=== PATIENT | female | born 1955 | race Caucasian/White ===

== ENCOUNTER → 2019-02-14 17:49 | Outpatient (CLI) | payer OTHER, SELFPAY ==
--- NOTE | 2019-02-14 | DI.MG.S_ITS ---
BILATERAL DIGITAL SCREENING MAMMOGRAM 3D/2D WITH CAD: 02/14/2019 CLINICAL: Routine screening. Family history of breast cancer. Comparison is made to exams dated: 10/21/2017 mammogram, 10/20/2016 mammogram, and 03/11/2015 mammogram - [facility]. There are scattered fibroglandular elements in both breasts. Current study was also evaluated with a Computer Aided Detection (CAD) system. No significant masses, calcifications, or other findings are seen in either breast. There has been no significant interval change. IMPRESSION: NEGATIVE There is no mammographic evidence of malignancy. A 1 year screening mammogram is recommended. This exam was interpreted at Station ID: [id number]. NOTE: For mammograms, a report in lay terms will be sent to the patient. Approximately 15% of breast malignancies will not be visualized mammographically. In the management of a palpable breast mass, a negative mammogram must not discourage biopsy of a clinically suspicious lesion. Electronically Signed By: Hermelindo rhodes/bharath:02/15/2019 08:24:40 letter sent: Normal Exam ACR BI-RADS Category 1: Negative [id number]
== END ==
PROVIDERS: Family Provider Physician Assistant; PCP Physician Assistant; Visit Provider Student in an Organized Health Care Education/Training Program
DX: Z12.31 Encounter for screening mammogram for malignant neoplasm of breast (principal); Z80.3 Family history of malignant neoplasm of breast
CPT/HCPCS: 77063; 77067

== ENCOUNTER → 2020-02-28 13:05 | Outpatient (CLI) | payer MEDICARE, SELFPAY ==
--- NOTE | 2020-02-28 | DI.MG.S_ITS ---
BILATERAL DIGITAL SCREENING MAMMOGRAM 3D/2D WITH CAD: 02/28/2020 CLINICAL: Routine screening. Family history of breast cancer. Comparison is made to exams dated: 02/14/2019 mammogram, 10/21/2017 mammogram, and 10/20/2016 mammogram - [facility]. There are scattered fibroglandular elements in both breasts. Current study was also evaluated with a Computer Aided Detection (CAD) system. No significant masses, calcifications, or other findings are seen in either breast. There has been no significant interval change. IMPRESSION: NEGATIVE There is no mammographic evidence of malignancy. A 1 year screening mammogram is recommended. This exam was interpreted at Station ID: [id number]. NOTE: For mammograms, a report in lay terms will be sent to the patient. Approximately 15% of breast malignancies will not be visualized mammographically. In the management of a palpable breast mass, a negative mammogram must not discourage biopsy of a clinically suspicious lesion. Electronically Signed By: John Lance M.D., jr/bharath:02/28/2020 13:58:08 letter sent: Normal Exam ACR BI-RADS Category 1: Negative [id number]
== END ==
PROVIDERS: Family Provider Physician Assistant; PCP Student in an Organized Health Care Education/Training Program; Referring Provider Student in an Organized Health Care Education/Training Program; Visit Provider Student in an Organized Health Care Education/Training Program
DX: Z12.31 Encounter for screening mammogram for malignant neoplasm of breast (principal); Z80.3 Family history of malignant neoplasm of breast
CPT/HCPCS: 77063; 77067

== ENCOUNTER → 2020-03-20 09:23 | Outpatient (CLI) | payer MEDICARE, SELFPAY ==
[2020-03-23 09:27] LABS: COVID19 Sendout Not Detected (Not Detect)
== END ==
PROVIDERS: Visit Provider Physician Assistant
DX: Z11.59 Encounter for screening for other viral diseases (principal)
CPT/HCPCS: 87635

== ENCOUNTER 2020-03-23 08:03 | Day surgery (SDC) | payer MEDICARE, SELFPAY ==
[2020-03-23] VITALS (7 sets, daily range): BP systolic 100–134; BP diastolic 59–71; PULSE 85–104; RESP 15–21; TEMP 36.1–36.7; O2SAT 94–99; BMI 26.6
[2020-03-23] MEDS: LACTATED RINGERS 1,000 ML 200 ML IV (08:22)
--- NOTE | 2020-03-23 09:18 | PM.HP.1 ---
History of Present Illness History of Present Illness Date Patient Seen: 03/23/20 Time Patient Seen: 09:18 Chief complaint: SDC Narrative: The patient presents for colorectal sreening. If had 3 prior colonoscopies the most recent being 5 years ago that demonstrated several adenomatous polyps which were resected. No personal or family history of colon cancer. On further history denies any recent gastrointestinal symptoms. No nausea, vomiting, abdominal pain, loss of appetite, unexplained weight loss, change in bowel habits, diarrhea, constipation, melena, hematochezia, or bright red blood per rectum. Patient History Medical History Acute appendicitis (Inactive) HTN (hypertension) (Acute) Surgical History History of appendectomy (Acute) Family & Social History Social History: household members spouse Tobacco & Substance use: Smoking Status Never smoker alcohol intake frequency holiday/special occasion Substance Use Type does not use Meds Home Medications and Allergies Home Medications Medication Instructions Recorded Confirmed Type alprazolam [Xanax XR] 2.5 mg PO QDAY PRN #0 07/08/17 03/23/20 History amlodipine [Norvasc] 2.5 mg PO DAILY #0 07/08/17 03/23/20 History atorvastatin [Lipitor] 20 mg PO DAILY #0 07/08/17 03/23/20 History atorvastatin [Lipitor] 20 mg PO DAILY #0 07/08/17 03/23/20 History losartan 25 mg PO DAILY #0 07/08/17 03/23/20 History losartan BID #0 07/08/17 History nortriptyline 75 mg PO HS #0 07/08/17 03/23/20 History oxycodone-acetaminophen 0 tab PO Q6HP PRN #30 07/10/17 Rx oxycodone-acetaminophen [Percocet] 1 tab PO Q6HP PRN #20 tab 07/10/17 Rx metoprolol tartrate 25 mg PO DAILY 03/23/20 03/23/20 History Allergies Allergy/AdvReac Type Severity Reaction Status Date / Time amoxicillin [From AUGMENTIN] Allergy Unknown Verified 03/23/20 08:16 clavulanic acid Allergy Unknown Verified 03/23/20 08:16 [From AUGMENTIN] Tetracyclines [TETRACYCLINES] Allergy Unknown Verified 03/23/20 08:16 Review of Systems Review of Systems Narrative: A 10 point review of systems is negative except as noted in the HPI Exam Vital Signs (past 8 hours): - 03/23/20 08:22 Temperature 96.9 F L Pulse Rate 104 H Respiratory Rate 20 Blood Pressure 113/71 Pulse Oximetry 99 Oxygen Delivery Method Room Air Narrative Exam Narrative: General-no acute distress, well nourished adult woman HEENT-moist mucous membranes, no scleral icterus Neck-supple, no lymphadenopathy Chest- non labored respirations, clear to auscultation bilaterally Cardiac-regular rate no peripheral edema Abdomen-soft, nontender, non distended Extremities-warm, well perfused Neurological-alert and oriented, no focal deficits Assessment & Plan Assessment and plan (1) Screening for colon cancer: Status: Acute Assessment & Plan narrative: The patient requires colorectal screening and colonoscopy is recommended. Technical details were discussed. Risks, benefits, alternatives explained. Risks including but not limited to myocardial infarction, aspiration, bleeding, pain, missed lesion, incomplete examination, need for further radiographic studies, colonic perforation, and need for major abdominal surgery were discussed. All questions were answered to their satisfaction, and they are in agreement with this plan. COVID-19 COVID-19 status: Negative
[2020-03-23] MEDS: MIDAZOLAM 5 MG/5 ML VIAL IV (09:26)
[2020-03-23] MEDS: fentaNYL 250 MCG/5 ML INJ IV (09:26)
--- NOTE | 2020-03-23 09:47 | PM.OP.ENDO ---
Operative Date/Time/Diagnoses Date of procedure: 03/23/20 Time of procedure: 09:47 Pre-op diagnosis: screening colonoscopy Post-op diagnosis: same Procedure & Clinicians Study performed: Colonoscopy Same procedure as scheduled: Yes Indications: 64-year-old woman last colonoscopy 5 years ago had adenomatous polyps resected here for routine screening Surgeon: Alverto Jorge Procedure Notes SCOAP/Timeout: Performed Procedure in detail: Patient placed in left lateral recumbent position. Time out was performed. Procedural sedation was administered with Versed and Fentanyl. Examination began with a thorough inspection of the perianal area there was no evidence of fissures, fistulae, external hemorrhoids or cutaneous malignancy. The colonoscopy scope was then placed into the rectum the the lumen was insufflated with air. The scope was carefully advanced forward. Ultimately the cecum was intubated and confirmed by identification of the ileocecal valve the appendiceal orifice and the confluence of the taenia. The scope was then slowly withdrawn examining colon thoroughly in all directions. In the rectum the rectal columns were identified and retroflexion of the scope was performed for inspection of the distal rectum and anal canal. The colonoscopy was notable for the followin. Quality of the preparation-good 2. Sigmoid diverticulosis 3. Diffuse circumferential mild inflammation of the cecum and ascending colon 4. Grade 1 internal hemorrhoids Scope withdrawal time: 7 Sedation minutes: 20 Findings: diverticulosis Specimen(s): none sent Complications: none Impression: Diverticulosis Post-procedure Recommendations: Colonscopy in 10 years Disposition: same day surgery
--- NOTE | 2020-03-23 09:58 | SUR.PHASEI ---
0950 Clammy upon arrival per RN and patient. She denies any pain/nausea. HOB elevated briefly for water and then lowered r/t light headedness. Washcloth to head upon arrival. Resp unlabored, oriented
--- NOTE | 2020-03-23 10:06 | SUR.PHASEI ---
HOB elevated, denies light-headedness, tolerating PO well.
--- NOTE | 2020-03-23 10:36 | SUR.PHASEII ---
Pt dcd in stable condition with no c/o and all dc instructions verbalized understanding. Up and ambulating on her own, gait steady.
== END 2020-03-23 10:35 | disposition home or self-care (01) ==
PROVIDERS: Referring Provider Surgery; Visit Provider Surgery
PROC: 0DJD8ZZ Inspection of Lower Intestinal Tract, Via Natural or Artificial Opening Endoscopic (ICD-10-PCS; CPT 45378; principal; 2020-03-23 09:15)
DX: Z12.11 Encounter for screening for malignant neoplasm of colon (principal); Z86.010 Personal history of colon polyps; I10 Essential (primary) hypertension; K57.30 Diverticulosis of large intestine without perforation or abscess without bleeding; K64.0 First degree hemorrhoids
CPT/HCPCS: G0105; 99152; J2250; J3010

== ENCOUNTER 2022-02-02 15:58 | Emergency (ER) | payer MEDICARE, SELFPAY ==
[2022-02-02] VITALS (17 sets, daily range): BP systolic 106–130; BP diastolic 53–82; PULSE 71–85; RESP 13–24; TEMP 37; O2SAT 96–99; BMI 25.9
--- NOTE | 2022-02-02 16:12 | DI.RAD.S_ITS ---
PROCEDURE: XR CHEST 1V INDICATIONS: chest pain TECHNIQUE: One view of the chest was acquired. COMPARISON: None. FINDINGS: Surgical changes and devices: None. Lungs and pleura: Lungs are clear. No pleural effusions or pneumothorax. Mediastinum: Mediastinal contours appear normal. Heart size is normal. Bones and chest wall: No suspicious bony lesions. Overlying soft tissues appear unremarkable. IMPRESSION: No acute pulmonary process. Dictated by: Marce Venegas M.D. on 02/02/2022 at 16:51 Approved by: Marce Venegas M.D. on 02/02/2022 at 16:51
[2022-02-02 16:55] LABS: Add Manual Diff / Slide Review NO; Basophils Absolute Auto 0 /uL (0-100); Basophils Percent Auto 0.4 % (0-2); Eosinophils Absolute Auto 100 /uL (0-450); Eosinophils Percent Auto 1.1 % (2-4); Hematocrit 35.8 % (36-46); Hemoglobin 12.1 g/dL (12.0-16.0); Lymphocytes Absolute Auto 1600 /uL (1100-4500); Lymphocytes Percent Auto 22.8 % (25-40); Mean Corpuscular HGB Conc 33.9 % (30-36); Mean Corpuscular Hemoglobin 31.1 PG (26-34); Mean Corpuscular Volume 91.7 fL (80-100); Monocytes Absolute Auto 600 /uL (0-900); Neutrophils Absolute Auto 4600 /uL (1500-7000); Neutrophils Percent Auto 66.7 % (50-75); Platelet Count 229 X10^3/uL (150-400); Red Cell Distribution Width 14.4 % (11.6-14.8); White Blood Cell Count 6.8 X10^3/uL (4.5-11.0)
[2022-02-02 16:59] LABS: Alanine Aminotransferase 25 IU/L (<35); Albumin 4.6 g/dL (3.5-5.0); Albumin Globulin Ratio 1.3 (1.0-2.8); Alkaline Phosphatase 83 U/L (38-126); Aspartate Aminotransferase 36 IU/L (14-36); BUN Creatinine Ratio 17.4 (6-22); Bilirubin Total 0.4 mg/dL (0.2-1.3); Blood Urea Nitrogen 27 mg/dL (7-17); Calcium 9.6 mg/dL (8.4-10.2); Carbon Dioxide 25 mmol/L (22-32); Chloride 97 mmol/L (98-107); Creatine Kinase 45 U/L (30-135); Estimated Glomerular Filt Rate 36 mL/min (>60); Globulin 3.5 g/dL (1.7-4.1); Glucose 97 mg/dL (80-110); HEMOLYSIS < 15 (0-50); Lipase 250 U/L (23-300); Magnesium 2.2 mg/dL (1.6-2.3); Potassium 3.9 mmol/L (3.4-5.1); Sodium 134 mmol/L (137-145); Total Protein 8.1 g/dL (6.3-8.2)
[2022-02-02 17:10] LABS: Troponin I < 0.012 ng/mL (0.01-0.034)
[2022-02-02 17:19] LABS: COVID19 -Nasal RAPID Negative (Negative)
--- NOTE | 2022-02-02 19:28 | ED.SYNCOPE ---
HPI - Syncope General Chief Complaint: Syncope Stated Complaint: sent for coronary workup Time Seen by Provider: 02/02/22 18:15 Source: patient Mode of arrival: Ambulatory Limitations: no limitations History of Present Illness HPI narrative: 66-year-old female nonsmoker with history of hypertension and hyperlipidemia presents with her for evaluation of a syncopal episode suffered in the past few days. She is been feeling a bit under the weather for the past 5 days and reports a low-grade fever, fatigue and generalized weakness. She denies any headache or blurred vision nor trouble swallowing or speech. She denies any chest pain or shortness of breath. She states that she has no abdominal pain or constipation but frequently has loose stools. She had been on the couch feeling a bit under the weather and upon standing felt lightheaded and then had a syncopal episode. She did bump her head as a consequence of the fall but denies any neck or back pain nor any extremity injury. She states that she had spent some time on [place] and was having some difficulty ambulating and felt a bit ?off? leading into this. She denies any recent travel, change in medications or diet nor history of blood clot or cancer. Related Data Home Medications Medication Instructions Recorded Confirmed losartan 50 mg tablet 50 mg PO QDAY ##0 11/20/11 alprazolam 3 mg tablet,extended 2.5 mg PO QDAY PRN Anxiety ##0 07/08/17 03/23/20 release 24 hr (Xanax XR) amlodipine 2.5 mg tablet (Norvasc) 2.5 mg PO DAILY ##0 07/08/17 03/23/20 atorvastatin 20 mg tablet (Lipitor) 20 mg PO DAILY ##0 07/08/17 03/23/20 atorvastatin 20 mg tablet (Lipitor) 20 mg PO DAILY ##0 07/08/17 03/23/20 losartan 25 mg tablet 25 mg PO DAILY ##0 07/08/17 03/23/20 losartan 25 mg tablet BID ##0 07/08/17 nortriptyline 75 mg capsule 75 mg PO HS ##0 07/08/17 03/23/20 metoprolol tartrate 25 mg tablet 25 mg PO DAILY 03/23/20 03/23/20 Previous Rx's Medication Instructions Recorded oxycodone-acetaminophen 5 mg-325 0 tab PO Q6HP PRN ##30 18 mg tablet oxycodone-acetaminophen 5 mg-325 1 tab PO Q6HP PRN #20 tabs 18 mg tablet (Percocet) Allergies Allergy/AdvReac Type Severity Reaction Status Date / Time amoxicillin [From AUGMENTIN] Allergy Unknown Verified 02/02/22 16:12 clavulanic acid Allergy Unknown Verified 02/02/22 16:12 [From AUGMENTIN] Tetracyclines [TETRACYCLINES] Allergy Unknown Verified 02/02/22 16:12 Review of Systems Review of Systems Narrative: GENERAL: See HPI HEENT: See HPI RESPIRATORY: See HPI CARDIOVASCULAR: Denies chest pain, palpitations, orthopnea, edema, GASTROINTESTINAL: See HPI : Denies dysuria, frequency, incontinence, hematuria, urinary retention. MUSCULOSKELETAL: denies weakness, joint pain, or bony pain SKIN: Denies rash, skin lesions, or other NEUROLOGIC: Denies weakness, headache, numbness, change in speech, confusion, seizures, incoordination. PSYCHIATRIC: No concerning psychosocial issues. 12 point review of systems is negative except for those stated above Patient History Medical History (Updated 02/02/22 @ 22:05 by Rufino Dumont DO) Acute appendicitis HTN (hypertension) Surgical History History of appendectomy Social History household members: spouse Smoking Status: Never smoker Smoking Status: Never smoker alcohol intake frequency: holidays/special occasions only Substance Use Type: does not use Exam Narrative Exam Narrative: GENERAL: [66] year old patient appears stated age. Well-developed patient, in mild distress. GCS 15 HEAD: Atraumatic. Normocephalic. EYES: Pupils equal round and reactive. Extraocular motions intact. No scleral icterus. No injection or drainage. ENT: Dry mucous membranes Nose without bleeding, purulent drainage. Throat without erythema, tonsillar hypertrophy or exudate. Airway patent. NECK: Trachea midline. Non tender CARDIOVASCULAR: Regular rate and rhythm without murmurs, gallops, or rubs. RESPIRATORY: Clear to auscultation. Breath sounds equal bilaterally. No wheezes, rales, or rhonchi. GASTROINTESTINAL: Abdomen soft, non-tender, nondistended. EXTREMITIES: No edema or joint tenderness. BACK: Nontender without deformity or crepitance. No flank tenderness. NEURO: AOx3. SKIN: No rash or erythema of visible areas Initial Vital Signs Initial Vital Signs: Vital Signs Temperature 98.6 F 02/02/22 16:07 Pulse Rate 84 02/02/22 16:07 Respiratory Rate 18 02/02/22 16:07 Blood Pressure 123/82 02/02/22 16:07 Pulse Oximetry 97 02/02/22 16:07 Oxygen Delivery Method 02/02/22 16:07 Course Orders Ordered: ED Orders 02/02/22 19:37 CT head/brain wo con Stat 02/02/22 21:00 BMP [Basic Metabolic Panel] Stat Trop I [Troponin I] Stat Discontinued Medications Lactated Ringer's (Lactated Ringers) 1,000 mls @ 1,000 mls/hr IV BOLUS ONE Stop: 02/02/22 20:28 Last Infusion: 02/02/22 20:53 Dose: 0 mls/hr Documented By: Admin: 02/02/22 19:36 Dose: 1,000 mls/hr Documented By: KIRTI Lactated Ringer's (Lactated Ringers) 1,000 mls @ 1,000 mls/hr IV BOLUS ONE Stop: 02/02/22 21:59 Last Infusion: 02/02/22 22:16 Dose: 0 mls/hr Documented By: Admin: 02/02/22 21:01 Dose: 1,000 mls/hr Documented By: SHAWNA Vital Signs Vital signs: Vital Signs - 8 hr 02/02/22 20:30 02/02/22 21:00 02/02/22 21:05 Pulse Rate 74 73 76 Respiratory Rate 22 Blood Pressure Pulse Oximetry 96 98 99 02/02/22 21:05 02/02/22 21:30 02/02/22 21:30 Pulse Rate 71 Respiratory Rate 16 Blood Pressure 110/56 L 108/53 L Pulse Oximetry 98 02/02/22 22:00 02/02/22 22:00 Pulse Rate 73 Respiratory Rate 18 Blood Pressure 112/56 L Pulse Oximetry 97 MDM - Syncope Lab Data Result diagrams: 02/02/22 16:20 02/02/22 21:00 Labs: Lab Results 02/02/22 02/02/22 02/02/22 Range/Units 16:10 16:20 16:20 WBC 6.8 (4.5-11.0) X10^3/uL RBC 3.90 L (4.0-5.2) X10^6/uL Hgb 12.1 (12.0-16.0) g/dL Hct 35.8 L (36-46) % MCV 91.7 (80-100) fL MCH 31.1 (26-34) PG MCHC 33.9 (30-36) % RDW 14.4 (11.6-14.8) % Plt Count 229 (150-400) X10^3/uL Neut % (Auto) 66.7 (50-75) % Lymph % (Auto) 22.8 L (25-40) % [place] % (Auto) 9.0 (3-14) % Eos % (Auto) 1.1 L (2-4) % Baso % (Auto) 0.4 (0-2) % Neut # (Auto) 4600 (9476-2877) /uL Lymph # (Auto) 1600 (8624-6337) /uL [place] # (Auto) 600 (0-900) /uL Eos # (Auto) 100 (0-450) /uL Baso # (Auto) 0 (0-100) /uL Sodium 134 L (137-145) mmol/L Potassium 3.9 (3.4-5.1) mmol/L Chloride 97 L (98-107) mmol/L Carbon Dioxide 25 (22-32) mmol/L BUN 27 H (7-17) mg/dL Creatinine 1.55 H (0.52-1.04) mg/dL Estimated GFR 36 L (>60) mL/min BUN/Creatinine Ratio 17.4 (6-22) Glucose 97 (80-110) mg/dL Calcium 9.6 (8.4-10.2) mg/dL Magnesium 2.2 (1.6-2.3) mg/dL Total Bilirubin 0.4 (0.2-1.3) mg/dL AST 36 (14-36) IU/L ALT 25 (<35) IU/L Alkaline Phosphatase 83 (38-126) U/L Total Creatine Kinase 45 (30-135) U/L CK-MB (CK-2) TNP CK-MB (CK-2) Rel Index TNP Troponin I < 0.012 (0.01-0.034) ng/mL Total Protein 8.1 (6.3-8.2) g/dL Albumin 4.6 (3.5-5.0) g/dL Globulin 3.5 (1.7-4.1) g/dL Albumin/Globulin Ratio 1.3 (1.0-2.8) Lipase 250 (23-300) U/L Urine RBC (0-5/HPF) Urine WBC (0-5/HPF) Ur Squamous Epith Cells (0-5/HPF) Amorphous Sediment Urine Bacteria (None) Ur Culture Indicated? SARS-CoV-2 (PCR) Negative (Negative) 02/02/22 02/02/22 02/02/22 Range/Units 19:14 21:00 21:00 WBC (4.5-11.0) X10^3/uL RBC (4.0-5.2) X10^6/uL Hgb (12.0-16.0) g/dL Hct (36-46) % MCV (80-100) fL MCH (26-34) PG MCHC (30-36) % RDW (11.6-14.8) % Plt Count (150-400) X10^3/uL Neut % (Auto) (50-75) % Lymph % (Auto) (25-40) % [place] % (Auto) (3-14) % Eos % (Auto) (2-4) % Baso % (Auto) (0-2) % Neut # (Auto) (9982-1406) /uL Lymph # (Auto) (3432-8318) /uL [place] # (Auto) (0-900) /uL Eos # (Auto) (0-450) /uL Baso # (Auto) (0-100) /uL Sodium 131 L (137-145) mmol/L Potassium 3.9 (3.4-5.1) mmol/L Chloride 97 L (98-107) mmol/L Carbon Dioxide 24 (22-32) mmol/L BUN 26 H (7-17) mg/dL Creatinine 1.47 H (0.52-1.04) mg/dL Estimated GFR 39 L (>60) mL/min BUN/Creatinine Ratio 17.7 (6-22) Glucose 95 (80-110) mg/dL Calcium 8.9 (8.4-10.2) mg/dL Magnesium (1.6-2.3) mg/dL Total Bilirubin (0.2-1.3) mg/dL AST (14-36) IU/L ALT (<35) IU/L Alkaline Phosphatase (38-126) U/L Total Creatine Kinase (30-135) U/L CK-MB (CK-2) CK-MB (CK-2) Rel Index Troponin I < 0.012 (0.01-0.034) ng/mL Total Protein (6.3-8.2) g/dL Albumin (3.5-5.0) g/dL Globulin (1.7-4.1) g/dL Albumin/Globulin Ratio (1.0-2.8) Lipase (23-300) U/L Urine RBC 1-5/hpf (0-5/HPF) Urine WBC 1-5/hpf (0-5/HPF) Ur Squamous Epith Cells 1-5 /hpf (0-5/HPF) Amorphous Sediment 1+ Urine Bacteria Few (2-10) H (None) Ur Culture Indicated? Specimen cultured SARS-CoV-2 (PCR) (Negative) Urine Dip Bedside Urine Glucose Negative Bedside Urine Bilirubin - Negative Bedside Urine Ketone - Negative Urine Specific [place] 1.020 Bedside Urine Occult Blood ++ Bedside Urine pH 5 Bedside Urine Protein + 30 Bedside Urine Urobilinogen - Negative Bedside Urine Nitrite - Negative Bedside Urine Leukocytes - Negative Esterase Imaging Data Chest x-ray: Radiologist's Impression: Close Chest X-Ray (Signed) Marce Venegas - 02/02/22 Telemetry Strips 03/23/20 Mammogram Screening (Signed) John Lance - 02/28/20 Mammogram Screening (Signed) Hermelindo Miranda - 02/14/19 Launch?[address] [address] XRay Report Signed Patient: Ara Garduno MR#: [id number] : 1955 Acct:[id number] Age/Sex: 66 / F Date of Service: 02/02/22 Loc: ED Accession Number: [id number] ?? Procedure: XR chest 1V Ordering Provider: Cyndee Munoz D.O. PROCEDURE:? XR CHEST 1V ? INDICATIONS:? chest pain ? TECHNIQUE:? One view of the chest was acquired.? ? COMPARISON:? None. ? FINDINGS:? ? Surgical changes and devices:? None.? ? Lungs and pleura:? Lungs are clear.? No pleural effusions or pneumothorax.? ? Mediastinum:? Mediastinal contours appear normal.? Heart size is normal.? ? Bones and chest wall:? No suspicious bony lesions.? Overlying soft tissues appear unremarkable.? ? IMPRESSION:? No acute pulmonary process. ? ? Dictated by: Marce Venegas M.D. on 02/02/2022 at 16:51 ? ? Approved by: Marce Venegas M.D. on 02/02/2022 at 16:51 ? CT scan - head: Radiologist's Impression: Close Head CT (Signed) Emigdio Antoine - 02/02/22 Chest X-Ray (Signed) Marce Venegas - 02/02/22 Telemetry Strips 03/23/20 Mammogram Screening (Signed) John Lance - 02/28/20 Mammogram Screening (Signed) Hermelindo Miranda - 02/14/19 Launch?[place] [address] CT Scan Report Signed Patient: Ara Garduno MR#: [id number] : 1955 Acct:[id number] Age/Sex: 66 / F Date of Service: 02/02/22 Loc: Accession Number: [id number] ?? Procedure: CT head/brain wo con Ordering Provider: Rufino Dumont D.O. PROCEDURE:? CT HEAD/BRAIN WO CON ? INDICATIONS:? dizzy, ambulation troubles last week, fall, head injury ? TECHNIQUE:? Noncontrast 4.5 mm thick angled axial sections acquired from the foramen magnum to the vertex, with coronal and sagittal reformats.? For radiation dose reduction, the following was used:? automated exposure control, adjustment of mA and/or kV according to patient size.? ? COMPARISON:? None. ? FINDINGS:? Image quality:? Excellent.? ? CSF spaces:? Basal cisterns are patent.? No extra-axial fluid collections.? The ventricles are symmetric in size and shape.? ? Brain:? No intracranial bleeds or masses.? There is cerebral volume loss for age, with resultant ventricular and sulcal prominence.? There are periventricular and deep white matter chronic small vessel ischemic changes.? There is intracranial internal carotid artery atherosclerosis.? ? Skull and face:? Calvarium and visualized facial bones appear intact, without suspicious lesions.? ? Sinuses:? Visualized sinuses and mastoids are clear.? ? IMPRESSION:? 1.? Volume loss and small vessel ischemic disease. 2. No acute intracranial abnormality. ? ? Dictated by: Emigdio Antoine M.D. on 02/02/2022 at 19:55 ? ? Approved by: Emigdio Antoine M.D. on 02/02/2022 at 19:55 ? ECG Data Interpretation: [1621] EKG is normal sinus rhythm rate [ 81] and free of any signs of ischemia or ectopy. No ST segmental elevation or depression. No T wave inversions. CT 234 (1st degree block) MDM Narrative Medical decision making narrative: 66-year-old female with reassuring history and physical exam has syncopal episode with change in position. She suffered no significant injury, exam suggests possible mild dehydration, she feels significant improvement after fluids, kidney function has improved. She is tolerating orals, able to ambulate without difficulty. Return precautions given and questions answered to her apparent satisfaction Discharge Plan Departure Patient Disposition: Home Clinical Impression: Syncope due to orthostatic hypotension, Acute dehydration Instructions: DI for Syncope in Adults (Fainting) Activity Restrictions/Additional Instructions: *You have been diagnosed with [fainting episode, likely due to dehydration ] *What to do: *Please continue to take your regular medications as directed. [ ] New medication prescriptions sent to your pharmacy: [ ] [ ] New medication written as a paper prescription [x ] No new medications given *Please follow up with your primary care provider in 2-3 days, call for an appointment. Let them know you were seen in the Emergency Department and that we ask that you be seen in follow up. We will electronically transmit a record of today's note if your PCP is in our system *If you do not have a primary care provider please contact the [facility] Resource line at [phone]. They will ask some questions about your medical history and help get you set up with a doctor in the community. *Return to Emergency Department if you should have any new, worsening or concerning symptoms, such as [fever greater than 101 F, shaking chills, worsening pain, persistent vomiting or other bothersome symptoms] Prescriptions: No Action losartan 50 MG tablet 50 mg PO QDAY Qty: 0 atorvastatin [Lipitor] 20 mg tablet 20 mg PO DAILY Qty: 0 amlodipine [Norvasc] 2.5 mg tablet 2.5 mg PO DAILY Qty: 0 losartan 25 mg tablet 25 mg PO DAILY Qty: 0 nortriptyline 75 MG capsule 75 mg PO HS Qty: 0 losartan 25 MG tablet BID Qty: 0 atorvastatin [Lipitor] 20 MG tablet 20 mg PO DAILY Qty: 0 alprazolam [Xanax XR] 3 MG tablet extended release 24 hr 2.5 mg PO QDAY PRN (Reason: Anxiety) Qty: 0 oxycodone-acetaminophen 5 MG/325 MG tablet 0 tab PO Q6HP PRNQty: 30 0RF oxycodone-acetaminophen [Percocet] 5 MG/325 MG tablet 1 tab PO Q6HP PRNQty: 20 0RF metoprolol tartrate 25 mg Tablet 25 mg PO DAILY Referrals: Meera Cuellar PA-C [Primary Care Provider] - Visit Report Forms: Patient Portal/API
[2022-02-02] MEDS: LACTATED RINGERS 1,000 ML 1000 ML IV ×2 (19:36→21:01)
--- NOTE | 2022-02-02 19:37 | DI.CT.S_ITS ---
PROCEDURE: CT HEAD/BRAIN WO CON INDICATIONS: dizzy, ambulation troubles last week, fall, head injury TECHNIQUE: Noncontrast 4.5 mm thick angled axial sections acquired from the foramen magnum to the vertex, with coronal and sagittal reformats. For radiation dose reduction, the following was used: automated exposure control, adjustment of mA and/or kV according to patient size. COMPARISON: None. FINDINGS: Image quality: Excellent. CSF spaces: Basal cisterns are patent. No extra-axial fluid collections. The ventricles are symmetric in size and shape. Brain: No intracranial bleeds or masses. There is cerebral volume loss for age, with resultant ventricular and sulcal prominence. There are periventricular and deep white matter chronic small vessel ischemic changes. There is intracranial internal carotid artery atherosclerosis. Skull and face: Calvarium and visualized facial bones appear intact, without suspicious lesions. Sinuses: Visualized sinuses and mastoids are clear. IMPRESSION: 1. Volume loss and small vessel ischemic disease. 2. No acute intracranial abnormality. Dictated by: Emigdio Antoine M.D. on 02/02/2022 at 19:55 Approved by: Emigdio Antoine M.D. on 02/02/2022 at 19:55
--- NOTE | 2022-02-02 20:04 | PC.NURSE ---
Pt reports being lethargic for the past 6 days with a decrease in appetite and diarrhea. She reports a syncopal event last night at 2230 with injury to her head and right elbow. Reports she has been feeling off-balance. Pt denies blood thinners, chest pain or SOB.
[2022-02-02 21:13] LABS: Amorphous Sediment Urine 1+; Bacteria Urine Few (2-10); Culture Indicated Urine Specimen Cultured; RBC Urine 1-5/HPF (0-5/HPF); Squamous Epithelial Cell Urine 1-5 /HPF (0-5/HPF); WBC Urine 1-5/HPF (0-5/HPF)
[2022-02-02 21:29] LABS: BUN Creatinine Ratio 17.7 (6-22); Blood Urea Nitrogen 26 mg/dL (7-17); Calcium 8.9 mg/dL (8.4-10.2); Carbon Dioxide 24 mmol/L (22-32); Chloride 97 mmol/L (98-107); Estimated Glomerular Filt Rate 39 mL/min (>60); Glucose 95 mg/dL (80-110); HEMOLYSIS < 15 (0-50); Potassium 3.9 mmol/L (3.4-5.1); Sodium 131 mmol/L (137-145)
[2022-02-02 21:41] LABS: Troponin I < 0.012 ng/mL (0.01-0.034)
== END 2022-02-02 22:17 | disposition home or self-care (01) ==
PROVIDERS: Emergency Medicine; Emergency Provider Emergency Medicine; PCP Physician Assistant; Referring Provider Physician Assistant
DX: I95.1 Orthostatic hypotension (principal); E86.0 Dehydration; S09.90XA Unspecified injury of head, initial encounter; W19.XXXA Unspecified fall, initial encounter; R07.9 Chest pain, unspecified; Z20.822 Contact with and (suspected) exposure to COVID-19
CPT/HCPCS: 36415; 70450; 71045; 80048; 80053; 81003; 81015; 82550; 83690; 83735; 84484; 85025; 87086; 87635; 93005; 96360; 96361; 99284; C9803

== ENCOUNTER → 2023-01-06 14:29 | Outpatient (CLI) | payer MEDICARE, SELFPAY ==
--- NOTE | 2023-01-06 | DI.MG.S_ITS ---
BILATERAL DIGITAL SCREENING MAMMOGRAM 3D/2D WITH CAD: 01/06/2023 CLINICAL: Routine screening. Family history of breast cancer. No prior exams were available for comparison. There are scattered areas of fibroglandular density in both breasts (category b / 25%-50% glandular tissue). Current study was also evaluated with a Computer Aided Detection (CAD) system. No significant masses, calcifications, or other findings are seen in either breast. IMPRESSION: NEGATIVE There is no mammographic evidence of malignancy. A 1 year screening mammogram is recommended. Based on the Tyrer Cuzick model (a risk assessment model) the patient's lifetime risk is 4.5% and her 10 year risk is 2.5%. According to the ACR, ACS, and NCCN guidelines, an annual breast MRI exam along with mammogram is recommended if the patient's lifetime risk is 20% or greater. This exam was interpreted at Station ID: [id number]. NOTE: For mammograms, a report in lay terms will be sent to the patient. Approximately 15% of breast malignancies will not be visualized mammographically. In the management of a palpable breast mass, a negative mammogram must not discourage biopsy of a clinically suspicious lesion. Electronically Signed By: Hermelindo rhodes/bharath:01/06/2023 16:01:00 letter sent: Normal Exam ACR BI-RADS Category 1: Negative 3341F
== END ==
PROVIDERS: PCP Physician Assistant; Referring Provider Physician Assistant; Visit Provider Physician Assistant
DX: Z12.31 Encounter for screening mammogram for malignant neoplasm of breast (principal); Z80.3 Family history of malignant neoplasm of breast
CPT/HCPCS: 77063; 77067

== ENCOUNTER → 2024-02-29 15:52 | Outpatient (CLI) | payer MEDICARE, SELFPAY ==
--- NOTE | 2024-02-29 15:53 | DI.MG.S_ITS ---
BILATERAL DIGITAL SCREENING MAMMOGRAM 3D/2D WITH CAD: 02/29/2024 CLINICAL: Routine screening. Family history of breast cancer. Comparison is made to exams dated: 01/06/2023 mammogram - [facility], 03/01/2021 mammogram - [facility], and 02/28/2020 mammogram - [facility]. There are scattered areas of fibroglandular density in both breasts (category b / 25%-50% glandular tissue). Current study was also evaluated with a Computer Aided Detection (CAD) system. No significant masses, calcifications, or other findings are seen in either breast. There has been no significant interval change. IMPRESSION: NEGATIVE There is no mammographic evidence of malignancy. A 1 year screening mammogram is recommended. Based on the Tyrer Cuzick model (a risk assessment model) the patient's lifetime risk is 4.2% and her 10 year risk is 2.5%. According to the ACR, ACS, and NCCN guidelines, an annual breast MRI exam along with mammogram is recommended if the patient's lifetime risk is 20% or greater. This exam was interpreted at Station ID: [id number]. NOTE: For mammograms, a report in lay terms will be sent to the patient. Approximately 15% of breast malignancies will not be visualized mammographically. In the management of a palpable breast mass, a negative mammogram must not discourage biopsy of a clinically suspicious lesion. Electronically Signed By: Hermelindo rhodes/bharath:03/01/2024 07:38:16 letter sent: Normal Exam ACR BI-RADS Category 1: Negative 3341F
== END ==
LOC: MAMMO 15:53
PROVIDERS: PCP Physician Assistant; Referring Provider Physician Assistant; Visit Provider Physician Assistant
DX: Z12.31 Encounter for screening mammogram for malignant neoplasm of breast (principal); Z80.3 Family history of malignant neoplasm of breast; R92.323 Mammographic fibroglandular density, bilateral breasts
CPT/HCPCS: 77063; 77067